=== PATIENT | female | born 1990 | race Two or more races ===

== ENCOUNTER 2024-06-19 08:09 | Outpatient (REF) | payer OTHER, SELFPAY | END 2024-06-19 08:10 | disposition home or self-care (01) | LOC: HO.HOSX 08:09 | PROVIDERS: Visit Provider Physician Assistant | DX: M25.562 Pain in left knee (principal); M25.561 Pain in right knee | CPT/HCPCS: 73560; 73562 ==

== ENCOUNTER 2024-06-19 08:27 | Outpatient (AMB) | payer OTHER, SELFPAY ==
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
[2024-06-19 08:40] VITALS: BMI 28.3
== END 2024-06-19 09:30 | disposition home or self-care (01) ==
PROVIDERS: Visit Provider Physician Assistant
DX: S80.01XA Contusion of right knee, initial encounter (principal); M23.91 Unspecified internal derangement of right knee; M79.602 Pain in left arm; Z04.3 Encounter for examination and observation following other accident
CPT/HCPCS: 99203; G2211

== ENCOUNTER 2024-07-21 19:03 | Outpatient (REF) | payer OTHER, SELFPAY ==
--- NOTE | ~2024-07-21 | MR_ITS ---
EXAMINATION: MR KNEE WITHOUT CONTRAST, LEFT CLINICAL INFORMATION: Osteoarthritis. Patient reports pain. COMPARISON: None available. TECHNIQUE: MRI of the knee without contrast was performed using routine sequences on a high-field scanner. FINDINGS: Exam is partially limited by image degrading motion artifact. MENISCI: Medial Meniscus: Intact. Lateral Meniscus: Intact. LIGAMENTS: Cruciate: Intact. ACL: Slightly attenuated but appears intact. Likely normal variation. Collateral: Intact . EXTENSOR MECHANISM: Intact. ARTICULAR CARTILAGE/BONE: Patellofemoral Compartment: Normal. Medial Compartment: Normal. Lateral Compartment: Normal. JOINT FLUID AND BURSAE: Normal . MR/MR knee LT wo con IMPRESSION: 1. Exam is partially limited by image degrading motion artifact. 2. Otherwise unremarkable examination. Electronically signed by: Kj Loredo MD 08/04/2024 07:51 AM EST
== END 2024-07-21 19:04 | disposition home or self-care (01) ==
LOC: HO.MRI 19:03
PROVIDERS: Visit Provider Physician Assistant
DX: M17.12 Unilateral primary osteoarthritis, left knee (principal)
CPT/HCPCS: 73721

== ENCOUNTER 2024-09-18 09:10 | Outpatient (AMB) | payer OTHER, SELFPAY ==
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
[2024-09-18 09:15] VITALS: BMI 28.3
== END 2024-09-18 09:16 | disposition home or self-care (01) ==
LOC: HO.HOS 09:10
PROVIDERS: Visit Provider Physician Assistant
DX: S80.01XA Contusion of right knee, initial encounter (principal)
CPT/HCPCS: 98012; G2211

== ENCOUNTER → 2024-09-18 09:10 | Outpatient (BNVA) | payer OTHER, SELFPAY | PROVIDERS: Visit Provider Physician Assistant ==